=== PATIENT | male | born 1950 | race Hispanic/Latino ===

== ENCOUNTER 2016-03-28 00:29 | Emergency (ER) | payer SELFPAY ==
[~2016-03-28 00:29] MED LIST: ADRENALIN ONE; CALCIUM CHLORIDE IV ONE; SODIUM BICARBONATE IV ONE
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
== END 2016-03-28 03:30 ==
LOC: ED 00:29
DX: I46.9 Cardiac arrest, cause unspecified (principal); S52.92XB Unspecified fracture of left forearm, initial encounter for open fracture type I or II; V09.00XA Pedestrian injured in nontraffic accident involving unspecified motor vehicles, initial encounter; Y93.89 Activity, other specified; Y99.9 Unspecified external cause status; Y92.89 Other specified places as the place of occurrence of the external cause
CPT/HCPCS: 31500; 92950; 99285; J0171